=== PATIENT | female | born 1975 | race Caucasian/White ===

== ENCOUNTER 2018-01-21 12:49 | Emergency (ER) | payer BC ==
[~2018-01-21 12:49] MED LIST: ISOVUE-370 76%-LOCM 1 ML ONE
[2018-01-21 13:13] LABS: #Basophils 0.1 thou/uL (0.0-0.2); #Eosinphils 0.2 thou/uL (0.0-0.7); #Lymphocytes 2.1 thou/uL (1.20-3.40); #Monocytes 0.6 thou/uL (0.11-0.59); #Neutrophils 9.8 thou/uL (1.40-6.50); %Basophils 0.6 % (0.0-1.0); %Eosinophils 1.6 % (0.0-10.0); %Lymphocytes 16.4 % (21.0-51.0); %Monocytes 4.9 % (0.0-10.0); %Neutrophils 76.6 % (42.0-75.0); Hemoglobin 13.9 g/dL (12.0-16.0); Mean Corpuscular HGB CONC 35.6 g/dL (32.0-36.0); Mean Corpuscular Volume 92.8 fl (81.0-99.0); Mean Platelet Volume 6.8 fL (7.4-10.4); Platelet Count 326 thou/uL (130-400); RBC Distribution Width 11.2 % (11.5-14.5); Red Blood Cell (RBC) Count 4.21 mill/uL (4.20-5.40); White Blood Cell (WBC) Count 12.8 thou/uL (4.8-10.8)
[2018-01-21] MEDS ORDERED: Ondansetron ODT 4 MG TAB ONE ×3 (13:15→14:11)
[2018-01-21 13:23] LABS: ALT (SGPT) 9 U/L (8-55); AST (SGOT) 18 U/L (5-34); Albumin 3.8 g/dL (3.5-5.0); Alkaline Phosphatase 44 U/L (40-150); Anion Gap 13 mmol/L (10-20); BUN (Urea Nitrogen) 6 mg/dL (7.0-18.7); Bilirubin, Total 0.6 mg/dL (0.2-1.2); Calc. Creatinine Clearance 0 mL/min (70-130); Calcium 8.7 mg/dL (7.8-10.44); Carbon Dioxide 20 mmol/L (22-29); Chloride 108 mmol/L (98-107); Estimated GFR-MDRD 78; Glucose 106 mg/dL (70-105); Potassium 3.4 mmol/L (3.5-5.1); Protein, Total 5.8 g/dL (6.0-8.3); Sodium 138 mmol/L (136-145)
--- NOTE | 2018-01-21 13:51 | RAD ---
AP PELVIS 1 VIEW: Date: 01/21/18 HISTORY: Fall. Pelvic injury. FINDINGS: Sacral ala and pelvic rings are intact. No displaced fractures are apparent. Phleboliths project over the pelvis. IMPRESSION: No displaced fractures are apparent. CT pelvis is pending. POS: [facility]
--- NOTE | 2018-01-21 14:14 | CT ---
CT HEAD NONCONTRAST CT CERVICAL SPINE NONCONTRAST: Date: 01/21/18 HISTORY: Fall from horse. Head injury. Neck injury. FINDINGS: There is no evidence of acute intracranial hemorrhage or infarct. Ventricles appear normal in size, s hape, and position. There is no mass effect or shift of midline structures. Visualized paranasal sinu ses remain well aerated. Vertebral body height and alignment of the cervical spine are intact. Cervicothoracic junction is int act. Partially calcified posterior disc bulges at the C3-4 and C5-6 levels are greater to the right o f midline and efface the right ventricle aspect of the thecal sac and spinal cord. No acute fracture or dislocation. IMPRESSION: Chronic-type findings. No acute intracranial abnormalities are demonstrated. No acute osseous abnorma lities of the cervical spine. Findings were called to Dr. Falcon in the ER at 1317 hours. CODE CR. POS: [facility]
--- NOTE | 2018-01-21 14:19 | CT ---
CT ABDOMEN AND PELVIS WITH CONTRAST: Date: 01/21/18 Multiple axial tomograms obtained of abdomen and pelvis with IV enhancement. INDICATION: Fall from horse with injury to right back region and abdomen. FINDINGS: Liver, spleen, pancreas, and kidneys are unremarkable. No solid organ injury identified. Bowel loops unremarkable. No evidence of free bladder fluid in the abdomen or pelvis. Pelvic structures are unrem arkable. Bladder is distended and is intact. Review of the osseous structures reveals a nondisplaced fracture of the posterior right 12th rib. No other fracture identified. Bony pelvis appears intact. IMPRESSION: Fracture posterior right 12th rib. CT abdomen otherwise unremarkable. CT LUMBAR SPINE: Multiple axial tomograms obtained through lower thoracic and lumbar spine with sagittal and coronal i maging. The lower thoracic and lumbar vertebra maintain normal height and alignment. No compression deformity . No evidence of fracture. IMPRESSION: No evidence of lumbar spine fracture. Findings relayed to Dr. Falcon. POS: [facility]
== END 2018-01-21 14:28 | disposition home or self-care (01) ==
LOC: ERS 12:49
DX: S22.31XA Fracture of one rib, right side, initial encounter for closed fracture (principal); S30.0XXA Contusion of lower back and pelvis, initial encounter; E03.9 Hypothyroidism, unspecified; F17.200 Nicotine dependence, unspecified, uncomplicated; W55.12XA Struck by horse, initial encounter
CPT/HCPCS: 70450; 72125; 72170; 74177; 80053; 85025; 86850; 86900; 86901; G0390; Q0162